=== PATIENT | male | born 1980 | race Hispanic/Latino ===

== ENCOUNTER 2024-03-08 06:46 | Emergency (ER) | payer OTHER ==
--- NOTE | 2024-03-08 07:39 | ER ---
Nurse's Notes [facility] Name: Brien Kaplan Age: 44 yrs Sex: Male : 1980 Arrival Date: 03/08/2024 Time: 06:46 Bed 8 Private MD: Diagnosis: Acute Allergic Reaction, Acute Allergic Hives Presentation: 03/08 06:50 Chief complaint: Patient states: I started having an allergic reaction this morning. I bm8 dont know to what but i had hives itching and wheezing. EMS states: Prisoner was treated on scene and appeared to only have slightly swollen eyes when we arrived. Coronavirus screen: Vaccine status: Patient reports receiving the 2nd dose of the covid vaccine. Ebola Screen: Patient negative for fever greater than or equal to 101.5 degrees Fahrenheit, and additional compatible Ebola Virus Disease symptoms Patient denies exposure to infectious person. Patient denies travel to an Ebola-affected area in the 21 days before illness onset. No symptoms or risks identified at this time. Onset: The symptoms/episode began/occurred acutely. 06:50 Method Of Arrival: EMS: [facility] bm8 06:53 Initial Sepsis Screen: Does the patient meet any 2 criteria? No. Patient's initial bm8 sepsis screen is negative. Does the patient have a suspected source of infection? No. Patient's initial sepsis screen is negative. Risk Assessment: Do you want to hurt yourself or someone else? Patient reports no desire to harm self or others. Onset of symptoms is unknown. Care prior to arrival: Medication(s) given: Albuterol Neb x 1, 125 mg Solu-Medrol, 25 mg Benadryl IV initiated. 18 GA, in the right antecubital area, Med neb given. Oxygen administered. via a nebulizer mask. 06:53 Acuity: ZULMA 3 bm8 Triage Assessment: 06:53 General: Appears in no apparent distress. comfortable, Behavior is calm, cooperative, bm8 appropriate for age. Pain: Denies pain. EENT: No deficits noted. No signs and/or symptoms were reported regarding the EENT system. Neuro: No deficits noted. Level of Consciousness is awake, alert, obeys commands, Oriented to person, place, time, situation, Appropriate for age. Cardiovascular: No deficits noted. Denies chest pain, Heart tones S1 S2 present Capillary refill < 3 seconds in bilateral fingers Patient's skin is warm and dry. Respiratory: Airway is patent Trachea midline Respiratory effort is even, unlabored, Respiratory pattern is regular, symmetrical, Breath sounds are clear bilaterally. GI: No signs and/or symptoms were reported involving the gastrointestinal system. : No signs and/or symptoms were reported regarding the genitourinary system. Derm: No signs and/or symptoms reported regarding the dermatologic system. Denies itching, or hives during triage. Musculoskeletal: No signs and/or symptoms reported regarding the musculoskeletal system. Historical: - Allergies: 06:53 No Known Allergies; bm8 - Home Meds: 06:53 None [Active]; bm8 - PMHx: 06:53 None; bm8 - PSHx: 06:53 None; bm8 - Immunization history:: Adult Immunizations up to date. - Infectious Disease History:: Denies. - Social history:: Smoking status: Patient denies any tobacco usage or history of. - Family history:: not pertinent. Screenin:57 [facility] ED Fall Risk Assessment (Adult) History of falling in the last 3 months, bm8 including since admission No falls in past 3 months (0 pts) Confusion or Disorientation No (0 pts) Intoxicated or Sedated No (0 pts) Impaired Gait No (0 pts) Mobility Assist Device Used No (0 pt) Altered Elimination No (0 pt) Score/Fall Risk Level 0 - 2 = Low Risk Oriented to surroundings, Maintained a safe environment, Educated pt \T\ family on fall prevention, incl call for assistance when getting out of bed, Assessed \T\ reinforced patient's understanding of fall precautions, Hourly rounding (assess needs \T\ fall precautionary measures) done, Used ambulatory aids as needed (educated on \T\ assisted with), Used gait belt as appropriate. Abuse screen: Denies threats or abuse. Nutritional screening: No deficits noted. Tuberculosis screening: No symptoms or risk factors identified. Assessment: 08:08 Reassessment: Patient is alert, oriented x 3, equal unlabored respirations, skin aa5 warm/dry/pink. 08:09 Reassessment: [facility] currently waiting on transportation back to [facility]. . aa5 09:00 Reassessment: Still in ER Room 8, remain awaiting transportation back to [facility]. . aa5 Vital Signs: 06:50 BP 120 / 90; Pulse 73; Resp 18; Temp 98.6; Pulse Ox 99% on R/A; Weight 106.59 kg; bm8 Height 6 ft. 3 in. ; Pain 0/10; 08:07 BP 118 / 75; Pulse 75; Resp 16 S; Temp 98.2(TE); Pulse Ox 99% on R/A; aa5 06:50 Body Mass Index 29.37 (106.59 kg, 190.5 cm) bm8 06:50 Pain Scale: Adult bm8 Jocelyn Coma Score: 06:57 Eye Response: spontaneous(4). Motor Response: obeys commands(6). Verbal Response: bm8 oriented(5). Total: 15. 22:00 Eye Response: spontaneous(4). Motor Response: obeys commands(6). Verbal Response: sp4 oriented(5). Total: 15. ED Course: 06:49 Patient arrived in ED. lg3 06:50 Humberto Farah, RN is Primary Nurse. bm8 06:53 Arm band placed on right wrist. bm8 06:57 Triage completed. bm8 06:57 Patient has correct armband on for positive identification. Bed in low position. Call bm8 light in reach. Side rails up X 1. Adult w/ patient. Security at bedside. Client placed on continuous cardiac and pulse oximetry monitoring. NIBP monitoring applied. Pulse ox on. NIBP on. Door closed. Noise minimized. Warm blanket given. Pillow given. Verbal reassurance given. Head of bed elevated. 06:57 No provider procedures requiring assistance completed. Maintain EMS IV. Dressing bm8 intact. Good blood return noted. Site clean \T\ dry. Gauge \T\ site: 18 rac. Flushed with 10 mL NS IV is patent, with fluids infusing freely, with good blood return. Patient maintains SpO2 saturation greater than 95% on room air. 07:07 Report given to MACIEL Dunbar. bm8 07:34 Ghulam Garcia MD is Attending Physician. sp4 08:08 IV discontinued, intact, bleeding controlled, No redness/swelling at site. Pressure aa5 dressing applied. Administered Medications: 08:08 Drug: diphenhydrAMINE PO 25 mg PO once Route: PO; aa5 08:08 Follow up: Response: Medication administered at discharge. aa5 08:08 Drug: predniSONE PO 60 mg PO once Route: PO; aa5 08:08 Follow up: Response: Medication administered at discharge. aa5 08:08 Drug: Famotidine PO 20 mg PO once Route: PO; aa5 08:08 Follow up: Response: Medication administered at discharge. aa5 Medication: 06:57 VIS not applicable for this client. bm8 Outcome: 07:39 Discharge ordered by MD. valente 08:08 Discharged to [employer] Enforcement aa5 08:08 Condition: stable 08:08 Discharge instructions given to patient, [facility] Instructed on discharge instructions, follow up and referral plans. medication usage, Demonstrated understanding of instructions, follow-up care, medications, Prescriptions given X 2, 09:38 Patient left the ED. iw Signatures: Marlin Mohamud RN RN iw Nan Fam RN RN aa5 Maeve Smith, RN RN lg3 Ghulam Garcia MD MD sp4 Humberto Fraah RN RN bm8 Corrections: (The following items were deleted from the chart) 07:08 07:07 Report given to MACIEL Dunbar bm8 bm8
--- NOTE | 2024-03-08 07:39 | EDPHYS ---
Physician Documentation [facility] Name: Brien Kaplan Age: 44 yrs Sex: Male : 1980 Arrival Date: 03/08/2024 Time: 06:46 Bed 8 Private MD: ED Physician Ghulam Garcia HPI: 03/08 07:37 This 44 yrs old Male presents to ER via EMS with complaints of Allergy sp4 Symptoms. 22:00 44 -year-old male presents from [facility] evaluation of acute allergic sp4 reaction. Patient states that after dinner he developed facial swelling diffuse hives. He was given Solu-Medrol and also Benadryl at the [facility] and he has improved. He was brought here for repeat evaluation. Patient he denies facial swelling denies hives denies itching. . Historical: - Allergies: 06:53 No Known Allergies; bm8 - Home Meds: 06:53 None [Active]; bm8 - PMHx: 06:53 None; bm8 - PSHx: 06:53 None; bm8 - Immunization history:: Adult Immunizations up to date. - Infectious Disease History:: Denies. - Social history:: Smoking status: Patient denies any tobacco usage or history of. - Family history:: not pertinent. ROS: 22:00 Constitutional: Negative for fever, chills, and weight loss, positive for reported sp4 hives and facial swelling 22:00 All other systems are negative, Exam: 22:00 Constitutional: This is a well developed, well nourished patient who is awake, alert, sp4 and in no acute distress. Head/Face: Normocephalic, atraumatic. Eyes: Pupils equal round and reactive to light, extra-ocular motions intact. Lids and lashes normal. Conjunctiva and sclera are not injected. Cornea within normal limits. Periorbital areas with no swelling, redness, or edema. ENT: Nares patent. No nasal discharge, no septal abnormalities noted. Tympanic membranes are normal and external auditory canals are clear. Oropharynx with no redness, swelling, or masses, exudates, or evidence of obstruction, uvula midline. Mucous membranes moist. Neck: Trachea midline, no thyromegaly or masses palpated, and no cervical lymphadenopathy. Supple, full range of motion without nuchal rigidity, or vertebral point tenderness. Chest/axilla: Normal chest wall appearance and motion. Nontender with no deformity. No lesions are appreciated. Cardiovascular: Regular rate and rhythm with a normal S1 and S2. No gallops, murmurs, or rubs. Normal PMI, no JVD. No pulse deficits. Respiratory: Lungs have equal breath sounds bilaterally, clear to auscultation and percussion. No rales, rhonchi or wheezes noted. No increased work of breathing, no retractions or nasal flaring. Abdomen/GI: Soft, with normal bowel sounds. No distension or tympany. No guarding or rebound. No evidence of tenderness throughout. Back: No spinal tenderness. No costovertebral tenderness. Skin: Warm, dry with normal turgor. Normal color with no rashes, no lesions, and no evidence of cellulitis. MS/ Extremity: Pulses equal, no cyanosis. Neurovascular intact. Full, normal range of motion. Neuro: Awake and alert, GCS 15, oriented to person, place, time, and situation. Cranial nerves II-XII grossly intact. Motor strength 5/5 in all extremities. Sensory grossly intact. Psych: Awake, alert, with orientation to person, place and time. Behavior, mood, and affect are within normal limits Vital Signs: 06:50 BP 120 / 90; Pulse 73; Resp 18; Temp 98.6; Pulse Ox 99% on R/A; Weight 106.59 kg; bm8 Height 6 ft. 3 in. ; Pain 0/10; 08:07 BP 118 / 75; Pulse 75; Resp 16 S; Temp 98.2(TE); Pulse Ox 99% on R/A; aa5 06:50 Body Mass Index 29.37 (106.59 kg, 190.5 cm) bm8 06:50 Pain Scale: Adult bm8 Jocelyn Coma Score: 06:57 Eye Response: spontaneous(4). Motor Response: obeys commands(6). Verbal Response: bm8 oriented(5). Total: 15. 22:00 Eye Response: spontaneous(4). Motor Response: obeys commands(6). Verbal Response: sp4 oriented(5). Total: 15. MDM: 07:39 Patient medically screened. sp4 22:03 Differential diagnosis: angioedema, Arrhythmias bronchospasm, Carcinoid Status sp4 Asthmaticus urticaria. Data reviewed: vital signs, nurses notes. ED course: Positive for normal exam at this time. Patient was given prednisone p.o. in ER. Will prescribe 5-day course of prednisone and Benadryl. Otherwise stable for discharge home.. Administered Medications: 08:08 Drug: diphenhydrAMINE PO 25 mg PO once Route: PO; aa5 08:08 Follow up: Response: Medication administered at discharge. aa5 08:08 Drug: predniSONE PO 60 mg PO once Route: PO; aa5 08:08 Follow up: Response: Medication administered at discharge. aa5 08:08 Drug: Famotidine PO 20 mg PO once Route: PO; aa5 08:08 Follow up: Response: Medication administered at discharge. aa5 Disposition: 22:05 Chart complete. sp4 Disposition Summary: 03/08/24 07:39 Discharge Ordered Notes: Location: Home sp4 Problem: new sp4 Symptoms: have improved sp4 Condition: Stable sp4 Diagnosis - Acute Allergic Reaction, Acute Allergic Hives sp4 Followup: sp4 - With: Private Physician - When: 7 - 10 days - Reason: Recheck today's complaints Discharge Instructions: - Discharge Summary Sheet sp4 - Allergies, Adult, [id number] sp4 Forms: - Patient Portal Instructions sp4 Prescriptions: - Benadryl 25 mg Oral capsule - take 2 capsule ORAL route every 8 hours for 5 days 5 day course , Give PRN sp4 Hives or itching; 30 tablet; Refills: 0, Product Selection Permitted - Prednisone 20 mg Oral Tablet - take 2 tablets ORAL route once daily for 5 days; 10 tablet; Refills: 0, Product sp4 Selection Permitted Signatures: Nan Fam, RN RN aa5 Ghulam Garcia MD MD sp4 Humberto Farah RN RN bm8
[2024-03-08] MEDS ORDERED: FAMOTIDINE 20 MG TAB ONE (07:59)
[2024-03-08] MEDS ORDERED: predniSONE 20 MG TAB ONE (07:59)
[2024-03-08] MEDS ORDERED: DIPHENHYDRAMINE 25 MG TAB/CAP ONE (07:59)
[2024-03-08 09:43] VITALS: BP 120/90; TEMP 98.6; O2SAT 99
== END 2024-03-08 09:38 | disposition home or self-care (01) ==
LOC: ER 06:46
DX: L50.0 Allergic urticaria (principal)
CPT/HCPCS: 99285; J7512